=== PATIENT | female | born 1985 | race Hispanic/Latino ===

== ENCOUNTER → 2024-04-14 | Outpatient (CLI) | payer BC ==
[~2024-04-14] MED LIST: METF-444 PO; METF-446 PO; PREN-154 PO
--- NOTE | 2024-04-14 14:14 | HMCIMG ---
US VENOUS DOPPLER UNILATERAL REASON: PAIN TO LT LEG COMPARISON: None Technique: Left venous doppler ultrasound was performed with spectral analysis and color flow imaging technique. FINDINGS: There is a normal appearance of the common femoral, deep femoral, the profunda femoris and popliteal veins. Proximal calf veins appear normal as well. There is normal response to compression and augmentation. There is no evidence of deep venous thrombosis. IMPRESSION: Normal left lower extremity venous Doppler ultrasound.
--- NOTE | 2024-04-14 14:15 | HMCIMG ---
US ARTERIAL UNILA LOW EXT DUPL REASON: PAIN TO LT LEG COMPARISON: None TECHNIQUE: Left leg arterial Doppler evaluation was performed with spectral analysis and color flow imaging. FINDINGS: There are normal triphasic waveforms present throughout the left lower extremity. Flow velocities are preserved as well. There is no evidence of arterial inflow occlusion. IMPRESSION: 1. Normal left leg arterial Doppler evaluation, no evidence of arterial inflow occlusion.
== END | disposition home or self-care (01) ==
LOC: RAH 12:53
PROVIDERS: ATTEND Nurse Practitioner Family
DX: M79.605 Pain in left leg (principal)
CPT/HCPCS: 93926; 93971